=== PATIENT | female | born 1995 | race Caucasian/White ===

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

== ENCOUNTER 2018-01-19 22:07 | Emergency (ER) | payer OTHER ==
[2018-01-19 22:33] VITALS: BP 107/54; PULSE 90; TEMP 99.5; BMI 26.5
--- NOTE | 2018-01-19 23:28 | PDOC ---
History of Present Illness - General Chief Complaint: Pain Stated Complaint: SHORTNESS OF BREATH/8 WKS Time Seen by Provider: 01/19/18 23:27 History Source: Patient Exam Limitations: No Limitations - History of Present Illness Travel History: No Initial Comments: 01/20/18 01:14 Best Contact:[phone] PCP: N/A Pmhx:N/A Pshx:0 Allergies:NKDA FH:0 Social Hx: Cigarettes/ 0 Alcohol/ 0 Drugs/0 LMP:September 2017 22-year-old female presents to the emergency department complaining of pelvic pain 5 days. The pain is alleviated and there are no alleviating factors. Pain is described as 2/10 dull nonradiating intermittent discomfort. Patient states she was seen at [facility] 3 days ago and was given Macrobid 100 mg daily for 5 days/diagnosed with a UTI. Patient states she only wants an ultrasound to see your . Patient denies fever, chills, nausea/vomiting , headache, dizziness, lightheadedness, neck pain/back pains, chest pain, shortness of breath, abdominal pains, flank pains, urinary symptoms: Frequency/ urgency/hesitancy, hematuria. Past History - Past Medical History Allergies/Adverse Reactions: Allergies Allergy/AdvReac Type Severity Reaction Status Date / Time No Known Allergies Allergy Verified 01/19/18 22:19 Home Medications: Ambulatory Orders Ibuprofen [Motrin -] 600 mg PO QID PRN #28 tablet 12/02/16 COPD: No Other medical history: Pt denies - Suicide/Smoking/Psychosocial Hx Smoking History: Never smoked Have you smoked in the past 12 months: No Information on smoking cessation initiated: No Hx Alcohol Use: No Drug/Substance Use Hx: No Substance Use Type: None Hx Substance Use Treatment: No Review of Systems - Review of Systems Able to Perform ROS?: Yes Comments:: 01/20/18 01:16 CONSTITUTIONAL: Absent: fever, chills, diaphoresis, generalized weakness, malaise, loss of appetite HEENT: Absent: rhinorrhea, nasal congestion, throat pain, throat swelling, difficulty swallowing, mouth swelling, ear pain, eye pain, visual Changes CARDIOVASCULAR: Absent: chest pain, loss of consciousness, palpitations, irregular heart rate, peripheral edema RESPIRATORY: Absent: cough, shortness of breath, dyspnea with exertion, orthopnea, wheezing, stridor, hemoptysis GASTROINTESTINAL: +pelvic pain Absent: abdominal pain, abdominal distension, nausea, vomiting, diarrhea, constipation, melena, hematochezia GENITOURINARY: Absent: dysuria, frequency, urgency, hesitancy, hematuria, flank pain, genital pain MUSCULOSKELETAL: Absent: myalgia, arthralgia, joint swelling SKIN: Absent: rash, itching, pallor Is the patient limited Arabic proficient: No *Physical Exam - Vital Signs Last Vital Signs Temp Pulse Resp BP Pulse Ox 99.5 F 90 18 107/54 99 01/19/18 22:20 01/19/18 22:20 01/19/18 22:20 01/19/18 22:20 01/19/18 22:20 - Physical Exam Comments: 01/20/18 01:17 GENERAL: Well developed, well nourished. Awake and alert. No acute distress. HEENT: Normocephalic, atraumatic. PERRLA, EOMI. No conjunctival pallor. Sclera are non- icteric. Moist mucous membranes. Oropharynx is clear. NECK: Supple. Full ROM. No JVD. Carotid pulses 2+ and symmetric, without bruits. No thyromegaly. No lymphadenopathy. CARDIOVASCULAR: Regular rate and rhythm. No murmurs, rubs, or gallops. Distal pulses are 2+ and symmetric. PULMONARY: No evidence of respiratory distress. Lungs clear to auscultation bilaterally. No wheezing, rales or rhonchi. ABDOMINAL: Soft. Non-tender. Non-distended. No rebound or guarding. No organomegaly. Normoactive bowel sounds. MUSCULOSKELETAL Normal range of motion at all joints. No bony deformities or tenderness. No CVA tenderness. EXTREMITIES: No cyanosis. No clubbing. No edema. No calf tenderness. SKIN: Warm and dry. Normal capillary refill. No rashes. No jaundice. Pelvic: External genitalia normal without lesions. Vaginal vault is clear without blood or discharge. Cervix is long and closed. ED Treatment Course - LABORATORY CBC & Chemistry Diagram: 01/19/18 23:12 01/19/18 23:12 - RADIOLOGY Radiograph Interpretation: 01/20/18 01:17 Transvaginal ultrasound: Single intrauterine gestation. Estimated gestational age is a weeks and 0 days. cardiac activity is documented at 160 bpm. *DC/Admit/Observation/Transfer Diagnosis at time of Disposition: Qualifiers: Weeks of gestation: 8 weeks Qualified Code(s): Z3A.08 - 8 weeks gestation of - Discharge Dispostion Disposition: HOME Condition at time of disposition: Stable Decision to Admit order: No - Referrals Referrals: Stone Vick MD [Primary Care Provider] - Joanne Matos MD [Staff Physician] - - Patient Instructions Printed Discharge Instructions: Human Chorionic Gonadotropin Additional Instructions: Your transvaginal ultrasound this evening shows that there is a single intrauterine gestation measuring 8 weeks and 0 days. Your baby's heart rate is 168 bpm. [place] [address].5 please follow-up with your registered dental assistant rda or the one listed on your discharge Return back to the ER for any concerns. - Post Discharge Activity Forms/Work/School Notes: Back to Work
[2018-01-19 23:31] LABS: BASO % 1.2 % (0-2.0); EOS % 1.5 % (0-4.5); HEMATOCRIT 37.4 % (32.4-45.2); HEMOGLOBIN 12.9 GM/dL (10.7-15.3); LYMPH % 26.8 % (8-40); MCH 28.7 pg (25.7-33.7); MCHC 34.4 g/dl (32.0-36.0); MEAN CELL VOLUME 83.5 fl (80-96); MEAN PLT VOLUME 9.4 fl (7.5-11.1); MONO % 9.4 % (3.8-10.2); NEUT % 61.1 % (42.8-82.8); PLATELET COUNT 219 K/MM3 (134-434); RBC 4.48 M/mm3 (3.60-5.2); RDW 14.7 % (11.6-15.6); WHITE BLOOD COUNT 5.7 K/mm3 (4.0-10.0)
[2018-01-19 23:32] LABS: URINE APPEARANCE SLCLOUDY; URINE BILIRUBIN NEGATIVE (<2.0 mg/dL); URINE COLOR YELLOW; URINE GLUCOSE (UA) NEGATIVE (NEGATIVE); URINE KETONE NEGATIVE (NEGATIVE); URINE LEUK ESTERASE NEGATIVE (NEGATIVE); URINE NITRITE NEGATIVE (NEGATIVE); URINE PROTEIN NEGATIVE (NEGATIVE); URINE UROBILINOGEN NEGATIVE mg/dL (0.2-1.0)
[2018-01-19 23:55] LABS: ALBUMIN 3.9 g/dl (3.4-5.0); ANION GAP 6 MMOL/L (8-16); BLOOD UREA NITROGEN 7 mg/dL (7-18); CHLORIDE 103 mmol/L (98-107); CO2 29 mmol/L (21-32); CREATININE 0.5 mg/dL (0.55-1.3); GLUCOSE,RANDOM 66 mg/dL (74-106); SGOT/AST 14 U/L (15-37); SGPT/ALT 19 U/L (13-61); SODIUM 138 mmol/L (136-145)
[2018-01-20 00:11] LABS: ALK PHOS 75 U/L (45-117); BILIRUBIN,TOTAL 0.3 mg/dL (0.2-1.0); TOT PROT 7.6 g/dl (6.4-8.2)
== END 2018-01-20 03:40 | disposition home or self-care (01) ==
LOC: JER 22:07
DX: O26.891 Other specified pregnancy related conditions, first trimester (principal); R10.2 Pelvic and perineal pain; Z3A.08 8 weeks gestation of pregnancy
CPT/HCPCS: 36415; 76801-TC; 80053; 81003; 84702; 85025; 86850; 86900; 86901; 99281-25

== ENCOUNTER 2018-02-18 10:59 | Emergency (ER) | payer OTHER ==
[2018-02-18 11:04] VITALS: BP 113/69; PULSE 75; TEMP 99.5; BMI 26.5
--- NOTE | 2018-02-18 11:46 | PDOC ---
History of Present Illness - General Chief Complaint: Pain Stated Complaint: CHESTPAIN ON THE LEFT SIDE Time Seen by Provider: 02/18/18 11:29 History Source: Patient Exam Limitations: No Limitations - History of Present Illness Initial Comments: 02/18/18 11:40 HISTORY OF PRESENT ILLNESS:23-year-old woman approximately 12 weeks by dates who presents emergency department for evaluation of left- sided chest pain. Patient states she has an aching pain to her chest which worsens when she moves her left shoulder. She describes the feeling as a tightness and states that it feels superficial on the chest wall. She states it increased intensity with movement but denies any shortness of breath, dizziness , headaches, nausea, vomiting. No recent travel or sick contacts. PAST MEDICAL HISTORY: Denies past medical history SURGICAL HISTORY: Denies ALLERGIES: No known drug allergies REVIEW OF SYSTEMS General/Constitutional: Denies fever or chills. Denies weakness, weight change. HEENT: Denies change in vision. Denies ear pain or discharge. Denies sore throat. Cardiovascular: left chest wall pain. Denies shortness of breath. Respiratory: Denies cough, wheezing, or hemoptysis. Gastrointestinal: Denies nausea, vomiting, diarrhea or constipation. Denies rectal bleeding. Genitourinary: Denies dysuria, frequency, or change in urination. Musculoskeletal: Denies joint or muscle swelling or pain. Denies neck or back pain. Skin and breasts: Denies rash or easy bruising. Neurologic: Denies headache, vertigo, loss of consciousness, or loss of sensation. Psychiatric: Denies depression or anxiety. Endocrine: Denies increased thirst. Denies abnormal weight change. Hematologic/Lymphatic: Denies anemia, easy bleeding, or history of blood clots. Allergic/Immunologic: Denies hives or skin allergy. Denies latex allergy. PHYSICAL EXAM General Appearance: Well-appearing, appropriately dressed. No apparent distress , no intoxication. HEENT: EOMI, PERRLA, normal ENT inspection, normal voice, TMs normal, pharynx normal. No conjunctival pallor. No photophobia, scleral icterus. Neck: Supple. Trachea midline. No tenderness, rigidity, carotid bruit, stridor , lymphadenopathy, or thyromegaly. Respiratory/Chest: Lungs CTAB. No shortness of breath, chest tenderness, respiratory distress, accessory muscle use. No crackles, rales, rhonchi, stridor , wheezing, dullness Cardiovascular: RRR. S1, S2. No JVD, murmur, bradycardia, tachycardia. Vascular Pulses: Dorsalis-Pedis (R): 2+, Dorsalis-Pedis (L): 2+ Gastrointestinal/Abdominal: Normal bowel sounds. Abdomen soft, non-distended. No tenderness or rebound tenderness. No organomegaly, pulsatile mass, guarding, hernia, hepatomegaly, splenomegaly. Lymphatic: No adenopathy, tenderness. Musculoskeletal/Extremities: Normal inspection. FROM of all extremities, normal capillary refill. Pelvis Stable. No CVA tenderness. No tenderness to extremities, pedal edema, swelling, erythema or deformity. Left pectoral tender to palpation. No palpable muscle spasms noted. Integumentary: Appropriate color, dry, warm. No cyanosis, erythema, jaundice or rash Neurologic: resolution agent II-XII intact. Fully oriented, alert. Appropriate mood/affect. Motor strength 5/5. No appreciable EOM palsy, facial droop or sensory deficit. Past History - Past Medical History Allergies/Adverse Reactions: Allergies Allergy/AdvReac Type Severity Reaction Status Date / Time No Known Allergies Allergy Verified 02/18/18 11:03 Home Medications: Ambulatory Orders Prenat 115/Iron Fum/Folic/Dss [ 19 Tablet] 1 each PO DAILY 02/18/18 COPD: No - Suicide/Smoking/Psychosocial Hx Smoking History: Never smoked Have you smoked in the past 12 months: No Hx Alcohol Use: No Drug/Substance Use Hx: No Substance Use Type: None Hx Substance Use Treatment: No *Physical Exam - Vital Signs Last Vital Signs Temp Pulse Resp BP Pulse Ox 99.5 F 75 18 113/69 98 02/18/18 11:01 02/18/18 11:01 02/18/18 11:01 02/18/18 11:01 02/18/18 11:01 Medical Decision Making - Medical Decision Making 02/18/18 11:52 A/P: 23-year-old woman with musculoskeletal chest pain Left pectoral tender to palpation no muscle spasms noted. EKG is reviewed by me and interpreted by Dr. Bethea: Sinus rhythm with rate 70. Normal intervals noted. isolated T-wave inversion in V3. No ST elevations or depressions noted. Patient is refusing chest x-ray as she is now. Physical exam suggests musculoskeletal pain I will treat the patient with Tylenol 975 mg and follow-up with her THEATRE PROFESSOR. *DC/Admit/Observation/Transfer Diagnosis at time of Disposition: Musculoskeletal chest pain - Discharge Dispostion Disposition: HOME Condition at time of disposition: Fair Decision to Admit order: No - Referrals Referrals: Stone Vick MD [Primary Care Provider] - - Patient Instructions Additional Instructions: Take Tylenol as directed by manufacturers instructions for pain. Avoid taking medicines like Naprosyn, Aleve, Motrin, Advil or ibuprofen as this may be harmful to the developing child. Make an appointment with your THEATRE PROFESSOR or primary doctor for reevaluation. Return to emergency department for any shortness of breath, nausea, vomiting, difficulty breathing or worsening symptoms. - Post Discharge Activity
[2018-02-18] MEDS ORDERED: ACETAMINOPHEN 325 MG TABLET (FP) ONE (11:49)
[2018-02-18] MEDS ORDERED: ACETAMINOPHEN 325 MG TABLET (FP) PO ONE (11:51)
--- NOTE | 2018-02-19 10:29 | EKG ---
Test Reason : Blood Pressure : / mmHG Vent. Rate : 070 BPM Atrial Rate : 070 BPM P-R Int : 144 ms QRS Dur : 090 ms QT Int : 362 ms P-R-T Axes : 077 077 031 degrees QTc Int : 390 ms NORMAL SINUS RHYTHM NONSPECIFIC ST ABNORMALITY ABNORMAL ECG NO PREVIOUS ECGS AVAILABLE Confirmed by ANAM HERNANDEZ, AMADEO ([id number]) on 02/19/2018 10:29:05 AM Referred By: YASMEEN Confirmed By:AMADEO MENDIETA MD
== END 2018-02-18 11:59 | disposition home or self-care (01) ==
LOC: JERFT 10:59
DX: O26.891 Other specified pregnancy related conditions, first trimester (principal); R07.89 Other chest pain; Z3A.12 12 weeks gestation of pregnancy
CPT/HCPCS: 93005; 93010; 99281-25

== ENCOUNTER 2018-07-24 01:51 | Emergency (ER) | payer OTHER ==
[2018-07-24 02:27] VITALS: BMI 30.1
--- NOTE | 2018-07-24 02:33 | PDOC ---
Attending Attestation - Resident Resident Name: Izzy Devi - ED Attending Attestation I have performed the following: I have examined & evaluated the patient, The case was reviewed & discussed with the resident, I agree w/resident's findings & plan - HPI HPI: 07/24/18 03:52 23-year-old gravid female, approximately 34 weeks gestational age complaining of intermittent headaches with possible carbon monoxide exposure. She denies acute abdominal pain back pain vomiting or fever. - Physicial Exam PE: 07/24/18 03:53 Agree with resident's exam. - Medical Decision Making 07/24/18 03:53 23-year-old gravid female with nausea and possible carbon monoxide exposure Carboxyhemoglobin was within normal range Patient is asymptomatic at this time Baseline labs pending Plan for discharge to labor and delivery for further evaluation
[2018-07-24] MEDS ORDERED: ACETAMINOPHEN 1000 MG/100 ML VIAL (NON FORMULARY) IVPB ONE (02:41)
[2018-07-24] MEDS ORDERED: SODIUM CHLORIDE 0.9% 500 ML INFUS.BAG IV ONE (02:41)
--- NOTE | 2018-07-24 02:51 | PDOC ---
History of Present Illness - General Chief Complaint: Headache Stated Complaint: HEADACHE, 34 WKS Time Seen by Provider: 07/24/18 02:28 - History of Present Illness Initial Comments: Lynnette Vizcarra is an otherwise healthy 23yo woman at 34wks gestation who presents to the ED reporting a headache that she is concerned was caused by a gas leak. Lynnette states that she recently found out her stove at home was leaking gas for the past several weeks. She says that she was unaware of the leak until she was told, but she realized that she has had a headache frequently for the past 2 weeks. The leak was repaired on Monday07/22/18, and she felt better for the past day. Today she went to work and developed a mild headache after being there for an hour or two. She was concerned that the headache was due to gas exposure, and she presented for evaluation. Ms Vizcarra denies any other new symptoms including palpitations, leg swelling, unusually frequent urination, nausea/vomiting, or unusual pain or discomfort. She does report feeling very thirsty over the past few days, but states that she has not been drinking an unusual amount of water. She follows with Dr Antonio and was last seen a few weeks ago. Past History - Past Medical History Allergies/Adverse Reactions: Allergies Allergy/AdvReac Type Severity Reaction Status Date / Time No Known Allergies Allergy Verified 07/06/18 20:03 Home Medications: Ambulatory Orders Prenat 115/Iron Fum/Folic/Dss [ 19 Tablet] 1 each PO DAILY 02/18/18 Cefpodoxime Proxetil [Vantin -] 100 mg PO BID #14 tablet 07/06/18 COPD: No - Suicide/Smoking/Psychosocial Hx Smoking History: Never smoked Have you smoked in the past 12 months: No Information on smoking cessation initiated: No Hx Alcohol Use: No Drug/Substance Use Hx: No Substance Use Type: None Hx Substance Use Treatment: No Review of Systems - Review of Systems Comments:: General: No fevers, no chills, no weight or appetite change, no malaise HEENT: No changes in vision, no changes in hearing, no congestion, no sore throat. +NAVA CV: No chest pain, no palpitations, no LE edema Pulm: No SOB, no cough, no wheezing GI: No nausea or vomiting, no change in bowel habits, no melena : No frequency, no urgency, no dysuria Musc: No back pain, no joint swelling, no recent injury Skin: No rash, no lesions, no erythema Endo: +unusually thirsty, no heat/cold intolerance Heme: No unusual bruising or bleeding, no swollen glands Neuro: No syncope, no numbness/tingling, no focal weakness Vasc: No claudication Psych: No recent change in mood, no SI or HI *Physical Exam - Vital Signs Last Vital Signs Temp Pulse Resp BP Pulse Ox 98.6 F 79 18 118/70 98 07/24/18 01:51 07/24/18 01:51 07/24/18 01:51 07/24/18 01:51 07/24/18 01:51 - Physical Exam Comments: General: Comfortable, no acute distress HEENT: PERRL, EOMI, MMM, voice normal, normal neck ROM, no sinus tenderness Cards: RRR, no murmur appreciated Pulm: Comfortable on room air, clear to auscultation bilaterally Abd: Soft, nontender, nondistended, gravid Ext: Atraumatic. No LE edema. ROM intact. Vasc: Extremities WWP. Skin: Normal color, no rashes or lesions Neuro: A&Ox3, CN grossly intact, normal speech, motor/sensory grossly intact and symmetric Psych: Mood appropriate to situation Moderate Sedation - Procedure Monitoring Vital Signs: Procedure Monitoring Vital Signs Temperature 98.6 F 07/24/18 01:51 Pulse Rate 79 07/24/18 01:51 Respiratory Rate 18 07/24/18 01:51 Blood Pressure 118/70 07/24/18 01:51 O2 Sat by Pulse Oximetry (%) 98 07/24/18 01:51 ED Treatment Course - LABORATORY CBC & Chemistry Diagram: 07/24/18 03:14 07/24/18 03:14 Medical Decision Making - Medical Decision Making 07/24/18 02:51 Lynnette Vizcarra is an otherwise healthy 23yo woman at 34wks gestation who presents with 2 weeks of headache in the setting of a stove gas leak at her home , repaired on Monday. She had a NAVA at work again today and was concerned that it was related to the gas. - VBG with carboxyhgb - Reports feeling thirsty. CBC, chemistry to evaluate for anemia, diabetes - UA for abnormalities - 1L NS bolus - IV acetaminophen for NAVA 07/24/18 04:05 - Labs completed. No abnormalities - Carboxyhgb 0.6 - Bedside US completed. Unable to measure HR due to technical difficulties, but appears normal. Good movement. - Will d/c to L&D for evaluation Discussed with Dr Herlinda Devi PGY1 *DC/Admit/Observation/Transfer Diagnosis at time of Disposition: Headache - Discharge Dispostion Disposition: HOME Condition at time of disposition: Fair Decision to Admit order: No - Referrals Referrals: Fabien Ritter [Primary Care Provider] - - Patient Instructions Printed Discharge Instructions: DI for -- Discomforts and Remedies Additional Instructions: Discharge Instructions: You were seen in the ER for a headache, and you were evaluated to see if the gas leak in your house caused the headache. You had special blood tests to check the level of oxygen and carbon monoxide in your blood, and the levels were normal. You were also checked for high blood sugars, low hemoglobin (anemia ) or other blood abnormalities. Your labs results were all normal. You were given IV fluids and IV acetaminophen for your headache. Please proceed to labor and delievery for assessment. Continue to take all your previously prescribed medications. You may take acetaminophen for pain or discomfort. Follow the directions on the package. Seek immediate medical care if you have any medical emergency including chest pain, shortness of breath, neurological abnormalities, dehydration, or any other concerning symptom. - Post Discharge Activity
[2018-07-24] MEDS ORDERED: ACETAMINOPHEN INJECTION 100 ML IVPB ONE (02:58)
[2018-07-24 03:20] LABS: BASO % 1.4 % (0-2.0); EOS % 1.4 % (0-4.5); HEMATOCRIT 34.4 % (32.4-45.2); LYMPH % 28.7 % (8-40); MCH 28.8 pg (25.7-33.7); MCHC 34.9 g/dl (32.0-36.0); MEAN CELL VOLUME 82.4 fl (80-96); MEAN PLT VOLUME 10.8 fl (7.5-11.1); MONO % 10.1 % (3.8-10.2); NEUT % 58.4 % (42.8-82.8); PLATELET COUNT 186 K/MM3 (134-434); RBC 4.18 M/mm3 (3.60-5.2); RDW 13.8 % (11.6-15.6); WHITE BLOOD COUNT 6.4 K/mm3 (4.0-10.0)
[2018-07-24 03:21] LABS: URINE APPEARANCE SLCLOUDY; URINE BILIRUBIN NEGATIVE (<2.0 mg/dL); URINE COLOR STRAW; URINE GLUCOSE (UA) NEGATIVE (NEGATIVE); URINE KETONE NEGATIVE (NEGATIVE); URINE LEUK ESTERASE NEGATIVE (NEGATIVE); URINE NITRITE NEGATIVE (NEGATIVE); URINE PROTEIN NEGATIVE (NEGATIVE); URINE UROBILINOGEN NEGATIVE mg/dL (0.2-1.0)
[2018-07-24 03:22] LABS: VENOUS PH 7.43 (7.31-7.41)
[2018-07-24 03:23] LABS: VENOUS PC02 33.1 mmHg (41-51)
[2018-07-24 03:55] LABS: ALBUMIN 2.5 g/dl (3.4-5.0); ALK PHOS 136 U/L (45-117); ANION GAP 5 MMOL/L (8-16); BILIRUBIN,TOTAL 0.2 mg/dL (0.2-1); BLOOD UREA NITROGEN 11 mg/dL (7-18); CALCIUM 8.8 mg/dL (8.5-10.1); CHLORIDE 107 mmol/L (98-107); CO2 24 mmol/L (21-32); CREATININE 0.4 mg/dL (0.55-1.3); GLUCOSE,RANDOM 72 mg/dL (74-106); POTASSIUM 4.5 mmol/L (3.5-5.1); SGOT/AST 19 U/L (15-37); SGPT/ALT 18 U/L (13-61); SODIUM 137 mmol/L (136-145); TOT PROT 6.4 g/dl (6.4-8.2)
[2018-07-24 05:17] VITALS: BP 128/59; PULSE 64; TEMP 98.8
== END 2018-07-24 05:40 | disposition home or self-care (01) ==
LOC: JER 01:51
PROC: 3E033NZ Introduction of Analgesics, Hypnotics, Sedatives into Peripheral Vein, Percutaneous Approach (ICD-10-PCS; principal; 2018-07-24)
PROC: BY4FZZZ Ultrasonography of Third Trimester, Single Fetus (ICD-10-PCS; 2018-07-24)
DX: O99.89 Other specified diseases and conditions complicating pregnancy, childbirth and the puerperium (principal); R51 Headache; Z3A.34 34 weeks gestation of pregnancy
CPT/HCPCS: 36415; 76801-TC; 80053; 81003; 82375; 82803; 85025; 96374; 99282-25; J0131

== ENCOUNTER 2018-08-20 06:33 | Inpatient (IN) | payer OTHER ==
[2018-08-20] MEDS ORDERED: AMPICILLIN SODIUM 2 GM VIAL ONE (07:45)
[2018-08-20] MEDS ORDERED: AMPICILLIN - 2 GM in SODIUM CHLORIDE 100 ML IVPB ONE (08:00)
[2018-08-20] MEDS ORDERED: TUBERCULIN PPD 5 TU/0.1ML SYRINGE (IN PATIENT USE ONLY) ID ONE (08:15)
[2018-08-20] MEDS ORDERED: ELECTROLYTE-148 SOLN 1,000 ML IV SCH (08:15)
[2018-08-20] MEDS ORDERED: BUTORPHANOL TARTRATE 2 MG/ML VIAL IVPB ONE (08:30)
[2018-08-20] MEDS ORDERED: PROMETHAZINE HCL 25 MG/1 ML VIAL IVPB ONE ×2 (08:30→13:16)
[2018-08-20] MEDS ORDERED: PROMETHAZINE HCL 25 MG/1 ML VIAL ONE ×2 (08:31→13:15)
[2018-08-20] MEDS ORDERED: BUTORPHANOL TARTRATE 2 MG/ML VIAL ONE ×3 (08:31→18:23)
[2018-08-20 08:51] LABS: BASO % 0.7 % (0-2.0); EOS % 0.2 % (0-4.5); HEMATOCRIT 38.6 % (32.4-45.2); HEMOGLOBIN 13.1 GM/dL (10.7-15.3); LYMPH % 15.7 % (8-40); MCH 27.9 pg (25.7-33.7); MEAN CELL VOLUME 82.1 fl (80-96); MEAN PLT VOLUME 10.8 fl (7.5-11.1); MONO % 6.2 % (3.8-10.2); NEUT % 77.2 % (42.8-82.8); PLATELET COUNT 217 K/MM3 (134-434); RDW 15.4 % (11.6-15.6); WHITE BLOOD COUNT 7.3 K/mm3 (4.0-10.0)
--- NOTE | 2018-08-20 09:00 | HP ---
Past Medical History - Primary Care Physician PCP:: Lary Brush - Admission Chief Complaint: Labor History of Present Illness: 23 yo EDC 08/30/18 EGA 38.2 weeks adimtted in active labor no rom Hx of hysteroscopic myomectomy in 2016 History Source: Patient - Past Medical History ...: 2 ...Para: 0 ...Term: 0 ...: 0 ...Spon : 0 ...Induced : 1 ...EDC by Sono: 08/30/18 - Past Surgical History Hx Myomectomy: Yes (hysteroscopic myomectomy 2016) Hx Transabdominal Cerclage: No - Smoking History Smoking history: Never smoked Have you smoked in the past 12 months: No - Alcohol/Substance Use Hx Alcohol Use: No History of Substance Use: reports: None - Social History History of Recent Travel: No Home Medications - Allergies Allergies/Adverse Reactions: Allergies Allergy/AdvReac Type Severity Reaction Status Date / Time No Known Allergies Allergy Verified 08/17/18 09:33 - Home Medications Home Medications: Ambulatory Orders Prenat 115/Iron Fum/Folic/Dss [ 19 Tablet] 1 each PO DAILY 02/18/18 Physical Exam - Maternity Vital Signs: Vital Signs Temperature 98.3 F 08/20/18 07:13 Pulse Rate 80 08/20/18 07:13 Respiratory Rate 18 08/20/18 07:13 Blood Pressure 130/72 08/20/18 07:13 O2 Sat by Pulse Oximetry (%) Constitutional: Yes: Well Nourished, No Distress Cardiovascular: Yes: WNL, Regular Rate and Rhythm Lungs: Clear to auscultation Breast(s): Yes: WNL - Abdominal Exam/OB Fundal Height: 39 Number of Fetuses: Single Presentation: Vertex Contractions: Yes Regularity: Irregular Monitor Mode: External Heart Rate Location: [facility] Category: I Decelerations: None - Vaginal Exam/OB Dilatation (cm): 2-3 cm Effacement (%): 100 Amniotic Membrane Status: Intact Presentation: Vertex/Position Station: 0 - Physical Exam Musculoskeletal: Yes: WNL Extremities: Yes: WNL Edema: No Integumentary: Yes: WNL Psychiatric: Yes: WNL, Alert, Oriented - Labs Lab Results: CBC, BMP 08/20/18 08:30 Hemorrhage Risk Assessment - Risk Factors Risk Score: 0 Risk Level: Low Risk Problem List - Problems (1) Size of fetus inconsistent with dates in third trimester Code(s): O26.843 - UTERINE SIZE-DATE DISCREPANCY, THIRD TRIMESTER Assessment/Plan IUP at 38.3 weeks Size less than dates IUGR Prodromal labor Cat 1 +GBS in urine Plan admit stadol Ampicillin
[2018-08-20 09:03] LABS: INR 0.93 (0.83-1.09)
[2018-08-20 09:06] LABS: ACTIVATED PTT 35.1 SECONDS (25.2-36.5)
[2018-08-20 09:11] LABS: ANION GAP 6 MMOL/L (8-16); BLOOD UREA NITROGEN 7 mg/dL (7-18); CALCIUM 9.1 mg/dL (8.5-10.1); CHLORIDE 105 mmol/L (98-107); CO2 24 mmol/L (21-32); CREATININE 0.5 mg/dL (0.55-1.3); GLUCOSE,RANDOM 78 mg/dL (74-106); POTASSIUM 4.4 mmol/L (3.5-5.1); SODIUM 136 mmol/L (136-145)
[2018-08-20 09:13] LABS: RPR NONREACTIVE (NONREACTIVE)
[2018-08-20] MEDS ORDERED: AMPICILLIN SODIUM 1 GM VIAL ONE ×4 (12:00→23:39)
[2018-08-20] MEDS: AMPICILLIN - 1 GM in SODIUM CHLORIDE 100 ML IVPB SCH ×4 (12:10→23:45)
--- NOTE | 2018-08-20 13:16 | PN ---
Ante-Partal Exam - Subjective Subjective: Pt with c/o of pain Vital Signs: Vital Signs Temperature 98.4 F 08/20/18 10:00 Pulse Rate 99 H 08/20/18 12:54 Respiratory Rate 18 08/20/18 12:54 Blood Pressure 133/77 08/20/18 12:54 O2 Sat by Pulse Oximetry (%) Bleeding: No Headache: No Visual changes: No Right upper quadrant pain: No - Contractions Contractions: Yes Regularity: Irregular Intensity: Moderate Monitor Mode: External - Exam during Labor Variability: Moderate Category: I Monitor Accelerations: Present Monitor Decelerations: None Exam: Vaginal Dilatation (cm): 2-3 cm Effacement (%): 135 Amniotic Membrane Status: Intact Presentation: Vertex Station: 0 - Intrapartum Hemorrhage Risk Risk Score: 0 Risk Level: Low Risk - Assessment/Plan Assessment/Plan: Cat 1 1up 38.4 week size< dates prdromal labor plan stadol/phergan continue present management
[2018-08-20] MEDS: BUTORPHANOL TARTRATE 2 MG/ML VIAL IVPUSH PRN ×2 (13:20→18:25)
[2018-08-20] MEDS: PROMETHAZINE HCL 25 MG/1 ML VIAL IVPUSH ONE ×2 (13:20→16:18)
[2018-08-20] MEDS: ELECTROLYTE-148 SOLN 1,000 ML IV SCH ×2 (15:00→22:30)
[2018-08-20] MEDS ORDERED: FENTANYL/BUPIVACAINE/NS/PF - PCEA - 50 ML DISP.SYRIN EP ONE (20:12)
[2018-08-20] MEDS ORDERED: NALOXONE HCL 0.4 MG/ML VIAL IVPUSH PRN (20:31)
[2018-08-20] MEDS ORDERED: BUPIVACAINE HCL/PF 0.25% (2.5MG/ML) 10 ML VIAL ONE (20:32)
[2018-08-20] MEDS ORDERED: LIDO 2%/EPI 1:200000 PRESRVFRE (20 ML SDVIAL) ONE (20:33)
[2018-08-20] MEDS: FENTANYL/BUPIVACAINE/NS/PF - PCEA - 50 ML DISP.SYRIN EP SCH (20:50)
--- NOTE | 2018-08-20 21:01 | PN ---
Ante-Partal Exam - Subjective Subjective: Pt desires epidural Vital Signs: Vital Signs Temperature 98.4 F 08/20/18 18:00 Pulse Rate 82 08/20/18 20:00 Respiratory Rate 20 08/20/18 20:00 Blood Pressure 138/84 08/20/18 20:00 O2 Sat by Pulse Oximetry (%) Bleeding: No Headache: No Visual changes: No Right upper quadrant pain: No - Contractions Contractions: Yes Regularity: Irregular Monitor Mode: External - Exam during Labor Variability: Moderate Category: I Monitor Accelerations: Present Monitor Decelerations: None Exam: Vaginal Dilatation (cm): 3 cm Amniotic Membrane Status: Intact Presentation: Vertex Station: 0 - Intrapartum Hemorrhage Risk Risk Score: 0 Risk Level: Low Risk - Assessment/Plan Assessment/Plan: iupat 38.4 week Cat 1 Plan epidural consider pit augmentation
[2018-08-20 23:25] LABS: RETICULOCYTES 1.18 % (0.5-1.5)
[2018-08-20] MEDS ORDERED: LIDOCAINE HCL 1% PRESERVATIVE FREE - 30ML VIAL ONE (23:38)
[2018-08-20] MEDS ORDERED: OXYTOCIN 20 UNITS in 0.9% NS 20 UNIT/1,000 ML INFUS.BAG IV ONE (23:38)
[2018-08-20] MEDS ORDERED: OXYTOCIN 30 UNITS in 0.9% NS 30 UNIT/500 ML INFUS.BAG IVPB ONE (23:38)
[2018-08-20] MEDS ORDERED: OXYTOCIN 30 UNITS in 0.9% NS 30 UNIT/500 ML INFUS.BAG IVPB SCH (23:45)
--- NOTE | 2018-08-20 23:46 | PN ---
Ante-Partal Exam - Subjective Subjective: Pt without complaints Vital Signs: Vital Signs Temperature 97.8 F 08/20/18 22:00 Pulse Rate 91 H 08/20/18 23:00 Respiratory Rate 18 08/20/18 23:00 Blood Pressure 148/86 08/20/18 23:00 O2 Sat by Pulse Oximetry (%) 100 08/20/18 23:00 Bleeding: No Headache: No Visual changes: No Right upper quadrant pain: No - Contractions Contractions: Yes Regularity: Irregular Intensity: Mild/Mod Monitor Mode: External - Exam during Labor Variability: Moderate Category: I Monitor Accelerations: Present Monitor Decelerations: None Exam: Vaginal Dilatation (cm): 9 Effacement (%): 100 Amniotic Membrane Status: Ruptured Amniotic Fluid: Clear Presentation: Vertex Station: +1 - Intrapartum Hemorrhage Risk Risk Score: 0 Risk Level: Low Risk - Assessment/Plan Assessment/Plan: IUP at 38.4 week active labor Cat 1 Plan pitocin aug
[2018-08-21 00:21] LABS: URIC ACID 5.1 mg/dL (2.6-7.2)
[2018-08-21] MEDS ORDERED: FENTANYL/BUPIVACAINE/NS/PF - PCEA - 50 ML DISP.SYRIN EP ONE (00:37)
--- NOTE | 2018-08-21 01:10 | PN ---
Delivery - Delivery Vaginal Delivery: No Problems Type of Anesthesia: Epidural Episiotomy/Laceration: None EBL (cc): 250 Delivery, Single - Stages of Labor Placenta: Yes: Spontaneous - Condition of Box Chipper/Rn Pacu Present: No Gender: Female Position: OA - Fries Feeding Plan Initial Plan: Elected not to breastfeed exclusively throughout hospitalization
[2018-08-21] MEDS ORDERED: BENZOCAINE 20% 57 GM BOTTLE TP PRN (01:11)
[2018-08-21] MEDS ORDERED: METHYLERGONOVINE MALEATE 0.2 MG/1 ML AMP IM PRN (01:11)
[2018-08-21] MEDS ORDERED: BISACODYL 10 MG SUPP.RECT PR PRN (01:11)
[2018-08-21] MEDS ORDERED: BENZOCAINE 28 GM HEMORRHOIDAL OINTMENT PR PRN (01:11)
[2018-08-21] MEDS ORDERED: WITCH HAZEL 50% (TUCKS) 40 PAD/JAR PAD TP PRN (01:11)
[2018-08-21] MEDS ORDERED: OXYTOCIN 20 UNITS in 0.9% NS 20 UNIT/1,000 ML INFUS.BAG IV SCH (01:15)
[2018-08-21 01:42] LABS: VENOUS PH 7.32 (7.31-7.41)
[2018-08-21 01:45] LABS: VENOUS PO2 23.1 mmHg (30-40)
[2018-08-21] MEDS: IBUPROFEN 600 MG TABLET (FP) PO PRN ×2 (02:50→15:46)
[2018-08-21] MEDS: ACETAMINOPHEN 325 MG TABLET (FP) PO PRN ×3 (02:51→15:47)
[2018-08-21] MEDS: AMPICILLIN - 1 GM in SODIUM CHLORIDE 100 ML IVPB SCH ×2 (05:01→12:03)
[2018-08-21] MEDS: ELECTROLYTE-148 SOLN 1,000 ML IV SCH (21:22)
[2018-08-21] MEDS: FENTANYL/BUPIVACAINE/NS/PF - PCEA - 50 ML DISP.SYRIN EP SCH (21:23)
[2018-08-22 08:58] LABS: BASO % 0.6 % (0-2.0); EOS % 3.2 % (0-4.5); HEMATOCRIT 33.2 % (32.4-45.2); HEMOGLOBIN 11.3 GM/dL (10.7-15.3); LYMPH % 31.5 % (8-40); MCH 28.1 pg (25.7-33.7); MCHC 34.2 g/dl (32.0-36.0); MEAN CELL VOLUME 82.3 fl (80-96); MEAN PLT VOLUME 10.6 fl (7.5-11.1); MONO % 8.3 % (3.8-10.2); NEUT % 56.4 % (42.8-82.8); PLATELET COUNT 172 K/MM3 (134-434); RBC 4.03 M/mm3 (3.60-5.2); RDW 15.6 % (11.6-15.6); WHITE BLOOD COUNT 7.4 K/mm3 (4.0-10.0)
--- NOTE | 2018-08-22 12:27 | PN ---
Post Progress Note - Subjective Subjective: Doing well, no complaints. Tolerating diet, ambulating, voiding, passing flatus. Denies CP/SOB/F/C/NAVA. Type of Delivery: Vital Signs: Vital Signs Temperature 98.2 F 08/22/18 10:00 Pulse Rate 79 08/22/18 10:00 Respiratory Rate 18 08/22/18 10:00 Blood Pressure 125/86 08/22/18 10:00 O2 Sat by Pulse Oximetry (%) 100 08/21/18 02:00 Uterus: Yes: Fundus Firm Abdomen/GI: Yes: Abdomen soft Lochia: Yes: Rubra Lochia, amount: Small Extremities: Yes: Calves non-tender Activity: Ambulating - Labs Labs: CBC WBC 7.4 K/mm3 (4.0-10.0) 08/22/18 07:30 RBC 4.03 M/mm3 (3.60-5.2) 08/22/18 07:30 Hgb 11.3 GM/dL (10.7-15.3) 08/22/18 07:30 Hct 33.2 % (32.4-45.2) 08/22/18 07:30 MCV 82.3 fl (80-96) 08/22/18 07:30 MCH 28.1 pg (25.7-33.7) 08/22/18 07:30 MCHC 34.2 g/dl (32.0-36.0) 08/22/18 07:30 RDW 15.6 % (11.6-15.6) 08/22/18 07:30 Plt Count 172 K/MM3 (134-434) 08/22/18 07:30 MPV 10.6 fl (7.5-11.1) 08/22/18 07:30 Absolute Neuts (auto) 4.2 K/mm3 (1.5-8.0) 08/22/18 07:30 Neutrophils % 56.4 % (42.8-82.8) D 08/22/18 07:30 Lymphocytes % 31.5 % (8-40) D 08/22/18 07:30 Monocytes % 8.3 % (3.8-10.2) 08/22/18 07:30 Eosinophils % 3.2 % (0-4.5) D 08/22/18 07:30 Basophils % 0.6 % (0-2.0) 08/22/18 07:30 Nucleated RBC % 0 % (0-0) 08/22/18 07:30 Retic Count 1.18 % (0.5-1.5) 08/20/18 23:10 Haptoglobin 148 mg/dL (34-200) 08/20/18 23:10 Problem List - Problems (1) Vaginal delivery Code(s): O80 - ENCOUNTER FOR FULL-TERM UNCOMPLICATED DELIVERY Assessment/Plan 23 y/o PPD1 s/p normal AFVSS Regular diet ambulation PO pain meds routine care
[2018-08-23 08:52] VITALS: BP 121/56; PULSE 89; TEMP 98.3
== END 2018-08-23 12:15 | disposition home or self-care (01) | DRG 560 ==
LOC: JDEL 06:33 → JLDR 07:35 → J3W 08-21 02:44
PROVIDERS: ADMIT Obstetrics & Gynecology; ATTEND Obstetrics & Gynecology
PROC: 10E0XZZ Delivery of Products of Conception, External Approach (ICD-10-PCS; principal; 2018-08-21)
PROC: 0W8NXZZ Division of Female Perineum, External Approach (ICD-10-PCS; 2018-08-21)
DX: O36.5930 Maternal care for other known or suspected poor fetal growth, third trimester, not applicable or unspecified (principal); O99.824 Streptococcus B carrier state complicating childbirth; Z3A.38 38 weeks gestation of pregnancy; Z37.0 Single live birth
CPT/HCPCS: 36415; 36600; 59025; 59409; 80048; 82803; 82977; 83010; 84450; 84460; 84550; 85025; 85032; 85044; 85610; 85730; 86593; 86850; 86900; 86901; 87389

== ENCOUNTER 2018-09-07 11:18 | Emergency (ER) | payer OTHER ==
[2018-09-07 11:25] VITALS: BMI 30.1
[2018-09-07] MEDS ORDERED: ACETAMINOPHEN 1000 MG/100 ML VIAL (NON FORMULARY) IVPB ONE (11:43)
[2018-09-07] MEDS ORDERED: SODIUM CHLORIDE 1,000 ML IV STA ×2 (11:43→13:17)
[2018-09-07] MEDS ORDERED: ACETAMINOPHEN INJECTION 100 ML IVPB ONE (11:51)
[2018-09-07 12:28] LABS: EOS % 0.2 % (0-4.5); HEMATOCRIT 39.9 % (32.4-45.2); HEMOGLOBIN 13.3 GM/dL (10.7-15.3); LYMPH % 36.2 % (8-40); MCH 27.4 pg (25.7-33.7); MCHC 33.4 g/dl (32.0-36.0); MEAN CELL VOLUME 81.9 fl (80-96); MEAN PLT VOLUME 10.6 fl (7.5-11.1); MONO % 10.3 % (3.8-10.2); NEUT % 52.3 % (42.8-82.8); PLATELET COUNT 212 K/MM3 (134-434); RBC 4.87 M/mm3 (3.60-5.2); RDW 15.5 % (11.6-15.6); WHITE BLOOD COUNT 3.1 K/mm3 (4.0-10.0)
[2018-09-07 12:30] LABS: EPI CELLS 4.7 /HPF (0-5/HPF); URINE APPEARANCE CLEAR; URINE BACTERIA 123.8 /hpf (NEGATIVE); URINE BILIRUBIN NEGATIVE (NEGATIVE); URINE CASTS 11 /lpf (0-8); URINE COLOR YELLOW; URINE GLUCOSE (UA) NEGATIVE (NEGATIVE); URINE KETONE NEGATIVE (NEGATIVE); URINE LEUK ESTERASE 3+ (NEGATIVE); URINE NITRITE NEGATIVE (NEGATIVE); URINE PROTEIN NEGATIVE (NEGATIVE); URINE RBC 2 /hpf (0-4); URINE WBC 8 /hpf (0-5)
[2018-09-07 12:37] LABS: VENOUS PC02 36.1 mmHg (41-51); VENOUS PH 7.42 (7.31-7.41); VENOUS PO2 61.3 mmHg (30-40)
[2018-09-07 12:47] LABS: INR 1.2 (0.83-1.09); PROTHROMBIN TIME (PATIENT) 14.2 SEC (9.7-13.0)
[2018-09-07 13:02] LABS: ALBUMIN 3.1 g/dl (3.4-5.0); ALK PHOS 96 U/L (45-117); ANION GAP 8 MMOL/L (8-16); BILIRUBIN,TOTAL 0.3 mg/dL (0.2-1); BLOOD UREA NITROGEN 5 mg/dL (7-18); CALCIUM 8.9 mg/dL (8.5-10.1); CHLORIDE 103 mmol/L (98-107); CO2 22 mmol/L (21-32); CREATININE 0.6 mg/dL (0.55-1.3); GLUCOSE,RANDOM 114 mg/dL (74-106); POTASSIUM 4.5 mmol/L (3.5-5.1); SGOT/AST 43 U/L (15-37); SGPT/ALT 21 U/L (13-61); SODIUM 133 mmol/L (136-145); TOT PROT 7.3 g/dl (6.4-8.2)
[2018-09-07] MEDS ORDERED: CEPHALEXIN MONOHYDRATE 500 MG CAPSULE (UD) PO ONE (13:17)
[2018-09-07] MEDS ORDERED: IBUPROFEN 600 MG TABLET (FP) PO ONE ×2 (13:34→13:39)
[2018-09-07] MEDS ORDERED: CEPHALEXIN MONOHYDRATE 500 MG CAPSULE (UD) ONE (13:34)
--- NOTE | 2018-09-07 13:39 | PDOC ---
History of Present Illness - General Chief Complaint: Back Pain Stated Complaint: LOWER BACK PAIN Time Seen by Provider: 09/07/18 11:40 History Source: Patient Exam Limitations: No Limitations - History of Present Illness Initial Comments: 09/07/18 13:35 Pt is a previously healthy 23yo F presenting to ED with complaints of knee pain , headache and fever x3 days. Pt states that she started to have pain in her knees mainly when she moves it and headache. Today the knee pain was severe so she decided to come to the hospital. Pt recently gave 3 weeks ago vaginally and received an epidural. She is endorsing back pain, headache, neck pain and bilateral knee pain. She denies cough, congestion, chest pain, sob, abdominal pain, n/v/d, dysuria, hematuria, vaginal bleeding, vaginal discharge, sore throat, earache. She is her infant. PMD: Latasha PMH: none PSH: none Meds: none Allergies: nkda Past History - Past Medical History Allergies/Adverse Reactions: Allergies Allergy/AdvReac Type Severity Reaction Status Date / Time No Known Allergies Allergy Verified 09/07/18 11:20 Home Medications: Ambulatory Orders Prenat 115/Iron Fum/Folic/Dss [ 19 Tablet] 1 each PO DAILY 02/18/18 Ibuprofen [Motrin -] 600 mg PO QID #28 tablet 08/23/18 Cephalexin Monohydrate [Keflex -] 500 mg PO BID #20 capsule 09/07/18 Asthma: No Cancer: No Cardiac Disorders: No COPD: No Diabetes: No HTN: No Seizures: No Thyroid Disease: No - Immunization History Td Vaccination: Yes TDAP Vaccination: Yes Immunization Up to Date: Yes - Suicide/Smoking/Psychosocial Hx Smoking History: Never smoked Have you smoked in the past 12 months: No Information on smoking cessation initiated: No Hx Alcohol Use: No Drug/Substance Use Hx: No Substance Use Type: None Hx Substance Use Treatment: No Review of Systems - Review of Systems Constitutional: Yes: Chills, Fever, Weakness HEENTM: No: Ear Pain, Nose Congestion, Tinnitus, Throat Pain Respiratory: No: Cough, Shortness of Breath Cardiac (ROS): No: Chest Pain, Lightheadedness, Palpitations, Syncope ABD/GI: No: Constipated, Diarrhea, Nausea, Rectal Bleeding, Vomiting, Abdominal cramping, Tarry Stools : Yes: Flank Pain. No: Burning, Dysuria Musculoskeletal: Yes: Back Pain, Joint Pain, Neck Pain Integumentary: No: Symptoms Reported Neurological: Yes: Headache. No: Numbness, Paresthesia, Seizure, Tingling, Tremors, Weakness, Dizziness *Physical Exam - Vital Signs Last Vital Signs Temp Pulse Resp BP Pulse Ox 100.4 F H 104 H 20 112/66 100 09/07/18 13:11 09/07/18 13:11 09/07/18 13:11 09/07/18 13:11 09/07/18 13:11 - Physical Exam General Appearance: Yes: Nourished, Appropriately Dressed. No: Apparent Distress HEENT: positive: EOMI, OLENA, Normal ENT Inspection Neck: positive: Trachea midline, Supple. negative: Lymphadenopathy (R), Lymphadenopathy (L) Respiratory/Chest: positive: Lungs Clear, Normal Breath Sounds. negative: Crackles Cardiovascular: positive: Regular Rhythm, S1, S2, Tachycardia. negative: Edema , JVD, Murmur Vascular Pulses: Carotid (R): 2+, Carotid (L): 2+, Dorsalis-Pedis (R): 2+, Doralis-Pedis (L): 2+ Gastrointestinal/Abdominal: positive: Normal Bowel Sounds, Soft. negative: Tender Musculoskeletal: positive: CVA Tenderness. negative: Vertebral Tenderness Extremity: positive: Normal Capillary Refill. 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 NML intact, Fully Oriented, Alert, Normal Mood/ Affect, Normal Response, Motor Strength / ED Treatment Course - LABORATORY CBC & Chemistry Diagram: 09/07/18 12:15 09/07/18 12:15 - ADDITIONAL ORDERS Additional order review: Laboratory Results 09/07/18 09/07/18 09/07/18 12:15 12:15 12:15 PT with INR INR PTT (Actin FS) VBG pH POC VBG pCO2 POC VBG pO2 VBG HCO3 VBG O2 Sat (Lisa) VBG Base Excess Sodium Potassium Chloride Carbon Dioxide Anion Gap BUN Creatinine Creat Clearance w eGFR Random Glucose Calcium Total Bilirubin AST ALT Alkaline Phosphatase Troponin I < 0.02 Total Protein Albumin Serum , Qual Negative Urine Color Urine Appearance Urine pH Ur Specific [place] Urine Protein Urine Glucose (UA) Urine Ketones Urine Blood Urine Nitrite Urine Bilirubin Urine Urobilinogen Ur Leukocyte Esterase Urine WBC (Auto) Urine RBC (Auto) Urine Casts (Auto) U Pathogenic Cast Auto U Epithel Cells (Auto) U Sm Round Cell (Auto) Urine Crystals (Auto) Urine Bacteria (Auto) Blood Type O POSITIVE Antibody Screen Negative 09/07/18 09/07/18 09/07/18 12:15 12:15 12:15 PT with INR 14.20 H INR 1.20 H PTT (Actin FS) 39.0 H VBG pH 7.42 H POC VBG pCO2 36.1 L POC VBG pO2 61.3 H VBG HCO3 22.9 L VBG O2 Sat (Lisa) 91.4 H VBG Base Excess -0.7 Sodium 133 L Potassium 4.5 Chloride 103 Carbon Dioxide 22 Anion Gap 8 BUN 5 L Creatinine 0.6 Creat Clearance w eGFR 126.20 Random Glucose 114 H Calcium 8.9 Total Bilirubin 0.3 AST 43 H ALT 21 Alkaline Phosphatase 96 Troponin I Total Protein 7.3 Albumin 3.1 L Serum , Qual Urine Color Urine Appearance Urine pH Ur Specific [place] Urine Protein Urine Glucose (UA) Urine Ketones Urine Blood Urine Nitrite Urine Bilirubin Urine Urobilinogen Ur Leukocyte Esterase Urine WBC (Auto) Urine RBC (Auto) Urine Casts (Auto) U Pathogenic Cast Auto U Epithel Cells (Auto) U Sm Round Cell (Auto) Urine Crystals (Auto) Urine Bacteria (Auto) Blood Type Antibody Screen 09/07/18 12:10 PT with INR INR PTT (Actin FS) VBG pH POC VBG pCO2 POC VBG pO2 VBG HCO3 VBG O2 Sat (Lisa) VBG Base Excess Sodium Potassium Chloride Carbon Dioxide Anion Gap BUN Creatinine Creat Clearance w eGFR Random Glucose Calcium Total Bilirubin AST ALT Alkaline Phosphatase Troponin I Total Protein Albumin Serum , Qual Urine Color Yellow Urine Appearance Clear Urine pH 5.0 Ur Specific [place] 1.016 Urine Protein Negative Urine Glucose (UA) Negative Urine Ketones Negative Urine Blood Negative Urine Nitrite Negative Urine Bilirubin Negative Urine Urobilinogen 1.0 Ur Leukocyte Esterase 3+ H Urine WBC (Auto) 8 Urine RBC (Auto) 2 Urine Casts (Auto) 11 U Pathogenic Cast Auto No Result Required. U Epithel Cells (Auto) 4.7 U Sm Round Cell (Auto) No Result Required. Urine Crystals (Auto) No Result Required. Urine Bacteria (Auto) 123.8 Blood Type Antibody Screen 09/07/18 12:15 RBC 4.87 MCV 81.9 MCHC 33.4 RDW 15.5 MPV 10.6 Neutrophils % 52.3 Lymphocytes % 36.2 Monocytes % 10.3 H Eosinophils % 0.2 D Basophils % 1.0 - RADIOLOGY Radiology Studies Ordered: Category Date Time Status CHEST X-RAY PORTABLE* [RAD] Stat Radiology 09/07/18 11:41 Taken - Medications Given in the ED: ED Medications Discontinued Medications Generic Name Dose Route Start Last Admin Trade Name Frehossein PRN Reason Stop Dose Admin Acetaminophen 1,000 mg 09/07/18 11:43 09/07/18 12:20 Ofirmev Injection - IVPB 09/07/18 11:44 1,000 mg ONCE ONE Administration Sodium Chloride 1,000 mls @ 1,000 mls/hr 09/07/18 11:43 09/07/18 12:20 Normal Saline - IV 09/07/18 12:42 1,000 mls/hr ASDIR STA Administration Medical Decision Making - Medical Decision Making 09/07/18 13:37 Pt is a previously healthy 23yo F presenting to ED with complaints of knee pain , headache and fever x3 days. Pt states that she started to have pain in her knees mainly when she moves it and headache. Today the knee pain was severe so she decided to come to the hospital. Pt recently gave 3 weeks ago vaginally and received an epidural. She is endorsing back pain, headache, neck pain and bilateral knee pain. She denies cough, congestion, chest pain, sob, abdominal pain, n/v/d, dysuria, hematuria, vaginal bleeding, vaginal discharge, sore throat, earache. She is her infant. Vitals: febrile, tachycardic PE: appears slightly uncomfortable, cva tenderness, no abdominal tenderness, lungs cta, no knee tenderness or swelling, negative kernig and brudzinski Ddx includes but not limited to viral infection, meningitis, spinal abscess, pyelonnephritis, uti, endometritis low suspicion for meningitis; pt appears well, no meningeal signs however will consider if no other source is found -sepsis w/u -fluids, tylenol -ekg, cxr labs show low white count, labs wnl. UA positive for infection. cxr is normal. no infiltrates or consolidations will give another liter of fluids and motrin. -keflex pt feeling better. repeat vitals: afebrile, HR 91, normotensive, saturating well on RA. pt ambulatory, possible pyelo however pt is young and no comorbidiites. suitable for outpt therapy with keflex. pt has pmd f/u and will make appointment. safe for dc home. pt agrees to plan *DC/Admit/Observation/Transfer Diagnosis at time of Disposition: Pyelonephritis - Discharge Dispostion Disposition: HOME Condition at time of disposition: Improved Decision to Admit order: No - Prescriptions Prescriptions: Cephalexin Monohydrate [Keflex -] 500 mg PO BID #20 capsule - Referrals Referrals: Radha Pagan MD [Primary Care Provider] - - Patient Instructions Printed Discharge Instructions: DI for Kidney Infection Additional Instructions: You were seen in the emergency room today for fevers, knee pain and headache. Your labs show an infection in the urine which may have spread to the kidneys. This is treated with antibiotics. A prescription for Keflex (cephalexin) was sent to your pharmacy. Please take as directed. Please keep yourself well hydrated and make an appointment with your doctor in the next few days. You can take Tylenol for the fevers/aches as needed. Come back to the emergency room if pain gets worse, you have worsening headaches , you have numbness/tingling, or if any new concerning symptom develops. Thank you - Post Discharge Activity
[2018-09-07 13:47] LABS: ANISOCYTOSIS 0; MACROCYTOSIS 0; PLATELET ESTIMATE NORMAL
--- NOTE | 2018-09-07 14:14 | PDOC ---
Documentation entered by Gilma Umanzor SCRIBE, acting as scribe for Mare Morales MD. Mare Morales MD: This documentation has been prepared by the Erna gonzalez Daisy, SCRIBE, under my direction and personally reviewed by me in its entirety. I confirm that the documentation accurately reflects all work, treatment, procedures, and medical decision making performed by me. Attending Attestation - Resident Resident Name: Haley Rogel - ED Attending Attestation I have performed the following: I have examined & evaluated the patient, The case was reviewed & discussed with the resident, I agree w/resident's findings & plan - HPI HPI: 09/07/18 12:59 The patient is an otherwise healthy female who presents to the ER with hip pain , bilateral knee pain, back pain, and headaches for the past 3 days. Patient recently had a vaginal delivery. Denies any vaginal bleeding. She has noticed normal discharge but denies any dysuria. No sick contact. Denies abdominal pain. Allergies: NKDA Surgeries: Denies. Social Hx: Denies toxic habits. PCP: Dr. Pagan - Physicial Exam PE: 09/07/18 13:08 ADULT EXAM GENERAL: Awake, alert, and fully oriented, in no acute distress ENT: Auricles normal inspection, hearing grossly normal, nares patent, oropharynx clear without exudates. Moist mucosa NECK: Normal ROM, supple, no lymphadenopathy, JVD, or masses LUNGS: Breath sounds equal, clear to auscultation bilaterally. No wheezes, and no crackles HEART: (+) Tachycardia. Regular rhythm, normal S1 and S2, no murmurs, rubs or gallops ABDOMEN: Soft, nontender, normoactive bowel sounds. No guarding, no rebound. No masses BACK: (+) Bilateral SVA tenderness. EXTREMITIES: Bilateral knees has full, active ROM. No lymphedema. Full, active ROM to the hips bilaterally. No clubbing or cyanosis. No cords, erythema, or tenderness NEUROLOGICAL: Cranial nerves II through XII grossly intact. Normal speech, normal gait SKIN: Warm, Dry, normal turgor, no rashes or lesions noted. - Medical Decision Making 09/07/18 14:12 Pt presents to the ED complaining of generalized myalgias and subjective fevers. Febrile and tachycardic on initial arrival to the ED. Improved with IVF and tylenol. + CVA tenderness on exam and evidence of UTI on UA. Will treat for pyelonephritis and discharge home.
[2018-09-07 14:21] VITALS: BP 109/68; PULSE 91; TEMP 98.9
--- NOTE | 2018-09-08 09:46 | EKG ---
Test Reason : Blood Pressure : / mmHG Vent. Rate : 110 BPM Atrial Rate : 110 BPM P-R Int : 134 ms QRS Dur : 082 ms QT Int : 314 ms P-R-T Axes : 058 067 000 degrees QTc Int : 424 ms SINUS TACHYCARDIA T WAVE ABNORMALITY, CONSIDER INFERIOR ISCHEMIA T WAVE ABNORMALITY, CONSIDER ANTERIOR ISCHEMIA ABNORMAL ECG WHEN COMPARED WITH ECG OF 18-FEB-2018 11:39, VENT. RATE HAS INCREASED BY 40 BPM T WAVE INVERSION NOW EVIDENT IN INFERIOR LEADS T WAVE INVERSION NOW EVIDENT IN ANTERIOR LEADS Confirmed by GABY HERNANDEZ, CRUZ ([id number]) on 09/08/2018 9:46:11 AM Referred By: Confirmed By:CRUZ GRIFFIN MD
== END 2018-09-07 14:55 | disposition home or self-care (01) ==
LOC: JER 11:18
PROC: 3E033NZ Introduction of Analgesics, Hypnotics, Sedatives into Peripheral Vein, Percutaneous Approach (ICD-10-PCS; principal; 2018-09-07)
PROC: 3E0337Z Introduction of Electrolytic and Water Balance Substance into Peripheral Vein, Percutaneous Approach (ICD-10-PCS; 2018-09-07)
DX: N12 Tubulo-interstitial nephritis, not specified as acute or chronic (principal)
CPT/HCPCS: 36415; 71045-TC-FY; 80053; 81003; 82803; 83605; 84484; 84703; 85025; 85610; 85730; 86850; 86900; 86901; 87040; 87086; 93005; 93010; 96361; 96374; 99283-25; J0131; J7030

== ENCOUNTER 2018-11-28 13:38 | Emergency (ER) | payer OTHER ==
[2018-11-28] MEDS ORDERED: ACETAMINOPHEN 325 MG TABLET (FP) PO ONE (13:58)
[2018-11-28 14:02] VITALS: BP 114/66; BMI 30.9
[2018-11-28] MEDS ORDERED: ACETAMINOPHEN 325 MG TABLET (FP) ONE (14:06)
--- NOTE | 2018-11-28 14:15 | PDOC ---
History of Present Illness - General Chief Complaint: Respiratory Stated Complaint: FEVER,WEAKNESS Time Seen by Provider: 11/28/18 13:57 History Source: Patient - History of Present Illness Timing/Duration: reports: other Past History - Past Medical History Allergies/Adverse Reactions: Allergies Allergy/AdvReac Type Severity Reaction Status Date / Time No Known Allergies Allergy Verified 11/28/18 13:56 Home Medications: Ambulatory Orders NK [No Known Home Medication] 11/28/18 Asthma: No Cancer: No Cardiac Disorders: No COPD: No Diabetes: No HTN: No Seizures: No Thyroid Disease: No - Immunization History Td Vaccination: Yes TDAP Vaccination: Yes Immunization Up to Date: Yes - Suicide/Smoking/Psychosocial Hx Smoking History: Never smoked Have you smoked in the past 12 months: No Information on smoking cessation initiated: No Hx Alcohol Use: No Drug/Substance Use Hx: No Substance Use Type: None Hx Substance Use Treatment: No Review of Systems - Review of Systems Constitutional: Yes: See HPI, Chills, Fever HEENTM: Yes: Throat Pain. No: Ear Pain Respiratory: Yes: Cough. No: Shortness of Breath, Wheezing Cardiac (ROS): No: Chest Pain ABD/GI: No: Diarrhea, Nausea, Vomiting, Abdominal cramping : No: Dysuria Neurological: Yes: Headache. No: Dizziness *Physical Exam - Vital Signs Last Vital Signs Temp Pulse Resp BP Pulse Ox 102.5 F H 122 H 16 114/66 100 11/28/18 13:54 11/28/18 13:54 11/28/18 13:54 11/28/18 13:54 11/28/18 13:54 - Physical Exam General Appearance: Yes: Appropriately Dressed. No: Apparent Distress HEENT: positive: Normal ENT Inspection, Normal Voice. negative: Scleral Icterus (R), Scleral Icterus (L) Neck: positive: Supple. negative: Lymphadenopathy (R), Lymphadenopathy (L) Respiratory/Chest: positive: Lungs Clear, Normal Breath Sounds. negative: Respiratory Distress Cardiovascular: positive: Regular Rate, S1, S2 Gastrointestinal/Abdominal: positive: Soft. negative: Tender Musculoskeletal: negative: CVA Tenderness Integumentary: positive: Dry, Warm Neurologic: positive: Fully Oriented, Alert, Normal Mood/Affect ED Treatment Course - Medications Given in the ED: ED Medications Discontinued Medications Generic Name Dose Route Start Last Admin Trade Name Freq PRN Reason Stop Dose Admin Acetaminophen 650 mg 11/28/18 13:58 11/28/18 14:04 Tylenol - PO 11/28/18 13:59 650 mg ONCE ONE Administration Medical Decision Making - Medical Decision Making 11/28/18 14:15 23 yo F, no sig hx, here w/ generalized body aches w/ NAVA and cough x 2 weeks, getting better but then developed fever yesterday. Taking tylenol at home. No SOB, CP, abd pain, diarrhea, neck pain, photophobia or rash. 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
[2018-11-28 14:36] LABS: EPI CELLS 3.2 /HPF (0-5/HPF); HYALINE CASTS 12 /lpf (0-8); URINE APPEARANCE CLOUDY; URINE BACTERIA 214.3 /hpf (NEGATIVE); URINE BILIRUBIN NEGATIVE (NEGATIVE); URINE COLOR YELLOW; URINE GLUCOSE (UA) NEGATIVE (NEGATIVE); URINE KETONE NEGATIVE (NEGATIVE); URINE LEUK ESTERASE 2+ (NEGATIVE); URINE NITRITE NEGATIVE (NEGATIVE); URINE PROTEIN TRACE (NEGATIVE); URINE RBC 4 /hpf (0-4); URINE WBC 46 /hpf (0-5)
[2018-11-28 14:51] VITALS: PULSE 100; TEMP 101.7
== END 2018-11-28 15:07 | disposition home or self-care (01) ==
LOC: JERFT 13:38
DX: B34.9 Viral infection, unspecified (principal)
CPT/HCPCS: 81003; 84703; 87070; 87086; 87880; 99282-25

== ENCOUNTER 2019-05-04 16:18 | Emergency (ER) | payer SELFPAY ==
[2019-05-04 16:25] VITALS: BMI 30.1
[2019-05-04] MEDS ORDERED: SODIUM CHLORIDE 1,000 ML IV STA (16:52)
[2019-05-04] MEDS ORDERED: morphine CARPU-JECT 4 MG/1 ML DISP.SYRIN IVPUSH ONE (16:52)
[2019-05-04] MEDS ORDERED: KETOROLAC TROMETHAMINE 30 MG/1 ML VIAL IVPUSH ONE (16:57)
--- NOTE | 2019-05-04 17:29 | PDOC ---
History of Present Illness - General Chief Complaint: Vomiting/Diarrhea Stated Complaint: VOMITING, FEVER Time Seen by Provider: 05/04/19 16:39 History Source: Patient Exam Limitations: No Limitations - History of Present Illness Abdominal Pain Onset Location: reports: generalized abdomen Past History - Travel Traveled outside of the country in the last 30 days: No Close contact w/someone who was outside of country & ill: No - Past Medical History Allergies/Adverse Reactions: Allergies Allergy/AdvReac Type Severity Reaction Status Date / Time No Known Allergies Allergy Verified 05/04/19 16:25 Home Medications: Ambulatory Orders Azithromycin [Zithromax 250mg Tablets -] 250 mg PO UTDICT #6 tab 11/30/18 Fluticasone Prop 0.05% Nasal [Flonase -] 1 - 2 spray NS DAILY #1 spray.pump Ibuprofen 600 mg PO Q6H #30 tablet 11/30/18 Metoclopramide HCl [Reglan -] 10 mg PO BID #14 tablet 11/30/18 Pseudoephedrine HCl 30 mg PO Q8H #21 tablet 11/30/18 Ondansetron HCl [Zofran] 4 mg PO PRN 2 Days #4 tablet 05/04/19 Asthma: No Cancer: No Cardiac Disorders: No COPD: No Diabetes: No HTN: No Seizures: No Thyroid Disease: No - Immunization History Td Vaccination: Yes TDAP Vaccination: Yes Immunization Up to Date: Yes - Psycho Social/Smoking Cessation Hx Smoking History: Never smoked Have you smoked in the past 12 months: No Hx Alcohol Use: No Drug/Substance Use Hx: No Substance Use Type: None Hx Substance Use Treatment: No Abd/GI Specific PMHX - Complaint Specific PMHX Colitis: No Review of Systems - Review of Systems Constitutional: No: Chills, Fever Cardiac (ROS): No: Chest Pain ABD/GI: Yes: Diarrhea, Nausea, Vomiting. No: Poor Fluid Intake, Abdominal cramping *Physical Exam - Vital Signs Last Vital Signs Temp Pulse Resp BP Pulse Ox 99.9 F H 100 H 18 115/68 98 05/04/19 16:22 05/04/19 16:22 05/04/19 16:22 05/04/19 16:22 05/04/19 16:22 - Physical Exam General Appearance: Yes: Nourished HEENT: positive: EOMI, OLENA Respiratory/Chest: positive: Lungs Clear, Normal Breath Sounds Cardiovascular: positive: Regular Rhythm, Regular Rate, S1, S2 Gastrointestinal/Abdominal: positive: Normal Bowel Sounds, Soft, Tenderness ( global tenderness) Musculoskeletal: positive: Normal Inspection Extremity: positive: Normal Capillary Refill Integumentary: positive: Normal Color 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 Patient reports she had 5 bouts of nonbloody BM today and vomited more than 8 times. She is also complaining of diffuse abdominal pain as a result of excessive vomiting and retching. Her daughter has similar symptoms at home. 05/04/19 18:42 Labs there is no acute findings. Patient reassessed benign abdominal exam. Patient feels better. Brat diet encourage and recommend in the next 1 to 2 days. 05/04/19 19:27 Discharge - Discharge Information Problems reviewed: Yes Clinical Impression/Diagnosis: AGE (acute gastroenteritis) Condition: Stable Disposition: HOME - Admission No - Additional Discharge Information Prescriptions: Ondansetron HCl [Zofran] 4 mg PO PRN 2 Days #4 tablet Prescription Drug Monitoring Program (I-STOP) results: I-STOP not reviewed - Follow up/Referral Referrals: Radha Pagan MD [Primary Care Provider] - - Patient Discharge Instructions Patient Printed Discharge Instructions: DI for Viral Gastroenteritis -- Adult Additional Instructions: Please eat bland diet for the next 1 to 2 days. Increase hydration. Take medication as prescribed for nausea. Return to the emergency room if worsening symptoms occurs - Post Discharge Activity
[2019-05-04] MEDS ORDERED: KETOROLAC TROMETHAMINE 30 MG/1 ML VIAL ONE (17:38)
[2019-05-04] MEDS ORDERED: ONDANSETRON 4 MG/2 ML VIAL ONE (17:38)
[2019-05-04 17:46] LABS: BASO % 0.3 % (0-2.0); HEMATOCRIT 40.9 % (32.4-45.2); HEMOGLOBIN 13.6 GM/dL (10.7-15.3); MCH 26.5 pg (25.7-33.7); MCHC 33.3 g/dl (32.0-36.0); MEAN CELL VOLUME 79.7 fl (80-96); MEAN PLT VOLUME 10.6 fl (7.5-11.1); MONO % 5.7 % (3.8-10.2); PLATELET COUNT 210 K/MM3 (134-434); RBC 5.14 M/mm3 (3.60-5.2); RDW 14.1 % (11.6-15.6); WHITE BLOOD COUNT 6.4 K/mm3 (4.0-10.0)
[2019-05-04] MEDS ORDERED: ONDANSETRON 4 MG/2 ML VIAL IVPUSH ONE (18:02)
[2019-05-04 18:12] LABS: EPI CELLS 8.1 /HPF (0-5/HPF); HYALINE CASTS 7 /lpf (0-8); URINE APPEARANCE CLOUDY; URINE BACTERIA 214.4 /hpf (NEGATIVE); URINE BILIRUBIN NEGATIVE (NEGATIVE); URINE COLOR YELLOW; URINE GLUCOSE (UA) NEGATIVE (NEGATIVE); URINE KETONE TRACE (NEGATIVE); URINE LEUK ESTERASE 2+ (NEGATIVE); URINE NITRITE NEGATIVE (NEGATIVE); URINE PROTEIN NEGATIVE (NEGATIVE); URINE RBC 2 /hpf (0-4); URINE UROBILINOGEN 0.2 mg/dL (0.2-1.0); URINE WBC 14 /hpf (0-5)
[2019-05-04 18:34] LABS: ALBUMIN 3.9 g/dl (3.4-5.0); ALK PHOS 84 U/L (45-117); ANION GAP 7 MMOL/L (8-16); BILIRUBIN,TOTAL 0.7 mg/dL (0.2-1); CHLORIDE 109 mmol/L (98-107); CO2 24 mmol/L (21-32); CREATININE 0.5 mg/dL (0.55-1.3); GLUCOSE,RANDOM 88 mg/dL (74-106); POTASSIUM 4.7 mmol/L (3.5-5.1); SGOT/AST 40 U/L (15-37); SGPT/ALT 23 U/L (13-61); SODIUM 139 mmol/L (136-145); TOT PROT 7.8 g/dl (6.4-8.2)
[2019-05-04 19:17] VITALS: BP 124/76; PULSE 75; TEMP 99.9
== END 2019-05-04 19:18 | disposition home or self-care (01) ==
LOC: JERFT 16:18
PROC: 3E033GC Introduction of Other Therapeutic Substance into Peripheral Vein, Percutaneous Approach (ICD-10-PCS; principal; 2019-05-04)
PROC: 3E0333Z Introduction of Anti-inflammatory into Peripheral Vein, Percutaneous Approach (ICD-10-PCS; 2019-05-04)
DX: K52.9 Noninfective gastroenteritis and colitis, unspecified (principal)
CPT/HCPCS: 36415; 80053; 81003; 83690; 84702; 85025; 99282-25; J7030

== ENCOUNTER 2019-05-16 02:52 | Emergency (ER) | payer SELFPAY ==
--- NOTE | 2019-05-16 03:44 | PDOC ---
History of Present Illness - General Stated Complaint: PAIN, SORE THROAT Time Seen by Provider: 05/16/19 03:42 - History of Present Illness Initial Comments: 05/16/19 04:27 24 year old woman with no pmhx who presents with sore throat for 2 days, chest pain and bilat shoulder pain that is reproducible on palpation for 1 week. She also reports a recent viral GI bug 2 weeks ago. She reports that she had a similar chest pain in the past during her . She was told she had a heart rhythm abnormality but is not sure what it is, some of my waves are u. She has no other complaints. ROS GENERAL/CONSTITUTIONAL: No fever or chills. No weakness. HEAD, EYES, EARS, NOSE AND THROAT: No change in vision. No ear pain or discharge. + sore throat. CARDIOVASCULAR: + chest pain, No shortness of breath RESPIRATORY: No cough, wheezing, or hemoptysis. GASTROINTESTINAL: No nausea, vomiting, diarrhea or constipation. GENITOURINARY: No dysuria, frequency, or change in urination. MUSCULOSKELETAL: No joint or muscle swelling or pain. No neck or back pain. SKIN: No rash NEUROLOGIC: No headache, vertigo, loss of consciousness, or change in strength/ sensation. ENDOCRINE: No increased thirst. No abnormal weight change HEMATOLOGIC/LYMPHATIC: No anemia, easy bleeding, or history of blood clots. ALLERGIC/IMMUNOLOGIC: No hives or skin allergy. PE GENERAL: Awake, alert, and fully oriented, in no acute distress HEAD: No signs of trauma, normocephalic, atraumatic EYES: EOMI, sclera anicteric, conjunctiva clear ENT: erythema of oropharynx, no exudates. Moist mucosa NECK: Normal ROM, supple LUNGS: No distress, speaks full sentences, clear to auscultation bilaterally HEART: Regular rate and rhythm, normal S1 and S2, no murmurs, rubs or gallops, peripheral pulses normal and equal bilaterally. ABDOMEN: Soft, nontender. No guarding, no rebound. No masses EXTREMITIES : Normal inspection, Normal range of motion, no edema. No clubbing or cyanosis. NEUROLOGICAL: Cranial nerves II through XII grossly intact. Normal speech, no focal sensorimotor deficits SKIN: Warm, Dry, normal turgor, no rashes or lesions noted MDM DDX including but not limited to: strep vs viral uri r/o cardiac abnml ED Course: EKG: nsr at 79bpm, T wave inversion in V2, unchanged from prior Missy Hunt PGY2 Emergency Medicine Past History - Past Medical History Allergies/Adverse Reactions: Allergies Allergy/AdvReac Type Severity Reaction Status Date / Time No Known Allergies Allergy Verified 05/16/19 03:44 Home Medications: Ambulatory Orders Azithromycin [Zithromax 250mg Tablets -] 250 mg PO UTDICT #6 tab 11/30/18 Fluticasone Prop 0.05% Nasal [Flonase -] 1 - 2 spray NS DAILY #1 spray.pump Ibuprofen 600 mg PO Q6H #30 tablet 11/30/18 Metoclopramide HCl [Reglan -] 10 mg PO BID #14 tablet 11/30/18 Pseudoephedrine HCl 30 mg PO Q8H #21 tablet 11/30/18 Ondansetron HCl [Zofran] 4 mg PO PRN 2 Days #4 tablet 05/04/19 Asthma: No Cancer: No Cardiac Disorders: No COPD: No Diabetes: No HTN: No Seizures: No Thyroid Disease: No - Immunization History Td Vaccination: Yes TDAP Vaccination: Yes Immunization Up to Date: Yes - Psycho Social/Smoking Cessation Hx Smoking History: Never smoked Have you smoked in the past 12 months: No Hx Alcohol Use: No Drug/Substance Use Hx: No Substance Use Type: None Hx Substance Use Treatment: No ED Treatment Course - LABORATORY CBC & Chemistry Diagram: 05/16/19 05:00 05/16/19 05:00 Discharge - Discharge Information Problems reviewed: Yes Clinical Impression/Diagnosis: Atypical chest pain, Sore throat Condition: Stable Disposition: HOME - Admission No - Follow up/Referral Referrals: Stone Vick MD [Primary Care Provider] - - Patient Discharge Instructions Patient Printed Discharge Instructions: DI for Atypical Chest Pain Additional Instructions: You were seen in the ER for complaints of sore throat and chest pain Your labwork and imaging were unremarkable You should follow up with your Family Doctor within 1 week Return to the ER if you develop worsening chest pain, shortness of breath, nausea, lightheadedness, sweating or any other concerning symptoms - Post Discharge Activity Work/Back to School Note: Back to Work
--- NOTE | 2019-05-16 03:51 | PDOC ---
Attending Attestation - Resident Resident Name: Missy Hunt - ED Attending Attestation I have performed the following: I have examined & evaluated the patient, The case was reviewed & discussed with the resident, I agree w/resident's findings & plan - HPI HPI: 05/16/19 05:59 see resident hpi - Physicial Exam PE: 05/16/19 05:59 agree with resident exam - Medical Decision Making 05/16/19 05:59 24-year-old female with a sore throat cough and chest discomfort Rapid strep is negative Labs including troponin unremarkable Will DC with symptomatic treatment
[2019-05-16 03:53] VITALS: BMI 33.5
[2019-05-16] MEDS ORDERED: IBUPROFEN 600 MG TABLET (FP) PO ONE ×2 (04:29→04:49)
[2019-05-16 04:36] VITALS: BP 107/59; PULSE 92; TEMP 98.5
[2019-05-16 05:28] LABS: BASO % 0.5 % (0-2.0); EOS % 0.7 % (0-4.5); HEMATOCRIT 38.3 % (32.4-45.2); HEMOGLOBIN 12.8 GM/dL (10.7-15.3); LYMPH % 19.2 % (8-40); MCH 26.4 pg (25.7-33.7); MCHC 33.4 g/dl (32.0-36.0); MEAN CELL VOLUME 79.1 fl (80-96); NEUT % 72.6 % (42.8-82.8); PLATELET COUNT 236 K/MM3 (134-434); RBC 4.84 M/mm3 (3.60-5.2); RDW 13.8 % (11.6-15.6); WHITE BLOOD COUNT 8.9 K/mm3 (4.0-10.0)
[2019-05-16 05:49] LABS: ALBUMIN 3.8 g/dl (3.4-5.0); BILIRUBIN,TOTAL 0.4 mg/dL (0.2-1); BLOOD UREA NITROGEN 9.2 mg/dL (7-18); CALCIUM 9.1 mg/dL (8.5-10.1); CREATININE 0.5 mg/dL (0.55-1.3); POTASSIUM 3.9 mmol/L (3.5-5.1); TOT PROT 7.4 g/dl (6.4-8.2)
--- NOTE | 2019-05-16 11:49 | EKG ---
Test Reason : Blood Pressure : / mmHG Vent. Rate : 079 BPM Atrial Rate : 079 BPM P-R Int : 158 ms QRS Dur : 094 ms QT Int : 366 ms P-R-T Axes : 062 076 025 degrees QTc Int : 419 ms NORMAL SINUS RHYTHM WITH SINUS ARRHYTHMIA NORMAL ECG WHEN COMPARED WITH ECG OF 07-SEP-2018 11:45, T WAVE INVERSION LESS EVIDENT IN ANTERIOR LEADS Confirmed by GRAYSON HERNANDEZ, ALEXANDRA ([id number]) on 05/16/2019 11:49:14 AM Referred By: Confirmed By:ALEXANDRA GALICIA MD
== END 2019-05-16 06:15 | disposition home or self-care (01) ==
LOC: JER 02:52
DX: J02.9 Acute pharyngitis, unspecified (principal); R07.89 Other chest pain
CPT/HCPCS: 36415; 80053; 84484; 85025; 87070; 87880; 93005; 93010; 99284-25

== ENCOUNTER 2020-07-16 16:13 | Emergency (ER) | payer OTHER ==
[2020-07-16 16:28] VITALS: BP 99/65; PULSE 90; TEMP 98; BMI 28.3
[2020-07-16] MEDS ORDERED: KETOROLAC TROMETHAMINE 60 MG/2 ML VIAL IM ONE (17:21)
[2020-07-16] MEDS ORDERED: KETOROLAC TROMETHAMINE 60 MG/2 ML VIAL ONE (17:23)
== END 2020-07-16 17:55 | disposition home or self-care (01) ==
LOC: JERFT 16:13
PROC: 3E0233Z Introduction of Anti-inflammatory into Muscle, Percutaneous Approach (ICD-10-PCS; principal; 2020-07-16)
DX: S13.4XXA Sprain of ligaments of cervical spine, initial encounter (principal)
CPT/HCPCS: 72050-TC-FY; 99284-25

== ENCOUNTER 2022-05-09 19:31 | Emergency (ER) | payer OTHER ==
[2022-05-09 20:52] VITALS: RESP 20; BMI 29.2
[2022-05-09] MEDS ORDERED: ACETAMINOPHEN 500 MG TABLET (FP) PO ONE (21:10)
[2022-05-09] MEDS ORDERED: KETOROLAC TROMETHAMINE 15 MG/ML VIAL IM ONE (21:10)
[2022-05-09] MEDS ORDERED: ONDANSETRON *ODT* 4 MG TABLET SL ONE (21:10)
[2022-05-09] MEDS ORDERED: ONDANSETRON *ODT* 4 MG TABLET ONE (21:15)
[2022-05-09] MEDS ORDERED: ACETAMINOPHEN 500 MG TABLET (FP) ONE (21:15)
[2022-05-09] MEDS ORDERED: KETOROLAC TROMETHAMINE 15 MG/ML VIAL ONE (21:15)
[2022-05-09 22:25] LABS: THROAT:GRP A STREP NOT DETECTED (NOTDETECTED)
[2022-05-09 22:33] VITALS: BP 108/73; PULSE 108; TEMP 100.7
== END 2022-05-09 22:44 | disposition home or self-care (01) ==
LOC: JER 19:31
PROC: 3E023GC Introduction of Other Therapeutic Substance into Muscle, Percutaneous Approach (ICD-10-PCS; principal; 2022-05-09)
DX: B34.9 Viral infection, unspecified (principal)
CPT/HCPCS: 0241U-QW; 87651; 96372; 99284-25; Q0162